=== PATIENT | male | born 1945 | race Caucasian/White ===

== ENCOUNTER 2022-04-25 12:47 | Outpatient (REF) | payer MEDICARE, SELFPAY | END 2022-04-25 12:48 | disposition home or self-care (01) | LOC: HO.SH 12:47 | PROVIDERS: PCP Physician Assistant Medical; Visit Provider Physician Assistant | DX: Z01.118 Encounter for examination of ears and hearing with other abnormal findings (principal); H90.3 Sensorineural hearing loss, bilateral | CPT/HCPCS: 92557 ==